=== PATIENT | male | born 1935 | race Caucasian/White ===

== ENCOUNTER 2023-05-28 12:02 | Outpatient (OUT) | payer MEDICARE, SELFPAY ==
[2023-05-28 12:47] LABS: Basophils Percent Auto 0.3 % (0.2-2.0); Bilirubin Urine NEGATIVE (NEGATIVE); Blood Urine NEGATIVE (NEGATIVE); Clarity Urine CLEAR (CLEAR); Color Urine LT. YELLOW (YELLOW); Eosinophils Absolute Auto 0.1 10^3/uL (0.0-0.7); Glucose Urine UA NEGATIVE (NEGATIVE); Hematocrit 32.5 % (42.0-54.0); Hemoglobin 10.4 g/dL (14.0-18.0); Immature Granulocytes Abs Auto 0.05 10^3/uL (0.00-0.03); Immature Granulocytes Pct Auto 0.7 % (0.0-0.5); Ketones Urine NEGATIVE (NEGATIVE); Leukocyte Esterase Urine NEGATIVE (NEGATIVE); Lymphocytes Absolute Auto 0.7 10^3/uL (1.2-3.8); Lymphocytes Percent Auto 10.1 % (20.5-60.0); Mean Corpuscular Hemoglobin 28.4 pg (25.9-34.0); Mean Corpuscular Volume 88.8 fL (80.0-94.0); Mean Platelet Volume 9.4 fL (9.5-13.5); Monocytes Absolute Auto 0.6 10^3/uL (0.3-0.8); Monocytes Percent Auto 7.5 % (1.7-12.0); Neutrophils Absolute Auto 5.9 10^3/uL (1.4-6.5); Neutrophils Percent Auto 80.4 % (43.0-75.0); Nitrite Urine NEGATIVE (NEGATIVE); Platelet Count 131 10^3/uL (150-450); Protein Urine NEGATIVE (NEG/TRACE); Red Blood Count 3.66 10^6/uL (4.70-6.10); Red Cell Distribution Width 16.4 % (11.0-15.0); Specific Gravity Urine 1.015 (1.005-1.025); Urobilinogen Urine 0.2 EU/dL (0.2-1.0); White Blood Count 7.3 10^3/uL (4.0-11.0)
[2023-05-28 12:53] LABS: Bacteria Urine NONE SEEN #/HPF (NONE SEEN); Cast Seen? NONE SEEN #/LPF (NONE SEEN); Crystals Seen? None Seen #/HPF (None Seen); Mucus Urine NONE SEEN (NONE SEEN); RBC Urine NONE SEEN #/HPF (0-2); Squamous Epithelial Cell Urine RARE #/LPF (NONE/RARE); WBC Urine NONE SEEN #/HPF (NONE SEEN)
[2023-05-28 12:54] LABS: Urine Culture Indicated NO
--- NOTE | 2023-05-28 13:05 | CT_ITS ---
[address] [address] Patient Name: ADRIEN MOORE MRN: [id number] date: 1935 Sex: M Assigned Patient Location: CT Current Patient Location: Accession/Order Number: [id number] Exam Date: 05/28/2023 13:00 Report Date: 05/29/2023 07:31 At the request of: RADHA ROWELL Procedure: CT chest wo con EXAMINATION: CT chest wo con HISTORY: Hemoptysis R04.2 COMPARISON: No relevant comparison available. TECHNIQUE: Multi-planar CT images were created with IV contrast. Axial, Coronal, and Sagittal images. Dose reduction techniques were achieved by using automated exposure control and/or adjustment of mA and/or kV according to patient size and/or use of iterative reconstruction technique. FINDINGS: LUNGS: Calcified tracheobronchial tree. Dependent opacities, atelectasis is favored no focal pulmonary nodule or mass PLEURA: No mass, effusion, or pneumothorax. VASCULATURE: No abnormality. [place]: Small calcified right hilar lymph nodes MEDIASTINUM: Scattered normal-sized lymph nodes CARDIAC: Moderate cardiomegaly. No pericardial effusion. Heavy coronary atherosclerosis AORTA: No aortic aneurysm. Atherosclerosis CHEST WALL: No mass or axillary adenopathy. BONES: No bone lesion or fracture. LIMITED ABDOMEN: No suspicious findings. Limited images of the upper abdomen. OTHER: Negative. CT/CT chest wo con IMPRESSION: No focal parenchymal mass or pathologic lymphadenopathy Marked cardiomegaly and coronary atherosclerosis Electronically authenticated by: FLORENTIN PECK Date: 05/29/2023 07:31
[2023-05-28 13:30] LABS: Percent Iron Saturation 21.6 %
[2023-05-28 13:40] LABS: Alanine Aminotransferase 29 U/L (16-63); Albumin Level 3.7 g/dL (3.4-5.0); Alkaline Phosphatase 87 U/L (46-116); Anion Gap 14.2; Aspartate Amino Transferase 24 U/L (15-37); BUN Creatinine Ratio 32.8; Bilirubin Total 1.1 mg/dL (0.2-1.0); Calcium 9.1 mg/dL (8.5-10.1); Carbon Dioxide 26.8 mmol/L (21.0-32.0); Chloride 101 mmol/L (98-107); Estimated GFR (African America 44 (>=60); Estimated GFR (Non-African Ame 36 (>=60); Globulin 3.7 g/dL; Glucose 97 mg/dL (74-106); Sodium 137 mmol/L (136-145); Thyroid Stimulating Hormone 1.669 uIU/mL (0.358-3.740); Total Protein 7.4 g/dL (6.4-8.2)
[2023-05-29 15:08] LABS: Albumin 3.6 g/dL (2.9-4.4); Alpha-1-Globulin 0.2 g/dL (0.0-0.4); Alpha-2-Globulin 0.8 g/dL (0.4-1.0); Free Kappa Lt Chains,S 43.3 mg/L (3.3-19.4); Free Lambda Lt Chains,S 26.2 mg/L (5.7-26.3); Gamma Globulin 1.2 g/dL (0.4-1.8); Immunoglobulin A, Qn, Serum 170 mg/dL (61-437); Immunoglobulin G, Qn, Serum 1188 mg/dL (603-1613); Immunoglobulin M, Qn, Serum 108 mg/dL (15-143); Kappa/Lambda Ratio,S 1.65 (0.26-1.65); Protein, Total 6.7 g/dL (6.0-8.5)
== END 2023-05-28 12:03 | disposition home or self-care (01) ==
LOC: CT 12:04
PROVIDERS: PCP Internal Medicine; Visit Provider Internal Medicine
DX: R04.2 Hemoptysis (principal); R73.01 Impaired fasting glucose; G62.9 Polyneuropathy, unspecified; D64.9 Anemia, unspecified; R53.83 Other fatigue; I12.9 Hypertensive chronic kidney disease with stage 1 through stage 4 chronic kidney disease, or unspecified chronic kidney disease; N18.32 Chronic kidney disease, stage 3b; D69.6 Thrombocytopenia, unspecified; I48.19 Other persistent atrial fibrillation
CPT/HCPCS: 36415; 71250; 80053; 81001; 82607; 82728; 82746; 82784; 83540; 83550; 84155; 84165; 84443; 85025; 86334

== ENCOUNTER 2023-06-15 10:46 | Outpatient (OUT) | payer MEDICARE, SELFPAY ==
[2023-06-15 11:44] LABS: Thyroid Stimulating Hormone 2.214 uIU/mL (0.358-3.740)
[2023-06-18 13:07] LABS: Albumin 3.6 g/dL (2.9-4.4); Alpha-1-Globulin 0.3 g/dL (0.0-0.4); Alpha-2-Globulin 0.8 g/dL (0.4-1.0); Protein, Total 6.6 g/dL (6.0-8.5)
== END 2023-06-15 10:47 | disposition home or self-care (01) ==
LOC: LAB 10:48
PROVIDERS: PCP Internal Medicine; Visit Provider Psychiatry & Neurology Neurology
DX: G62.9 Polyneuropathy, unspecified (principal)
CPT/HCPCS: 36415; 82607; 82746; 84155; 84165; 84443

== ENCOUNTER 2023-06-20 12:48 | Outpatient (RCR) | payer MEDICARE, SELFPAY | END 2023-06-21 16:43 | disposition home or self-care (01) | LOC: PT 12:48 | PROVIDERS: PCP Internal Medicine; Visit Provider Psychiatry & Neurology Neurology | DX: G62.9 Polyneuropathy, unspecified (principal) | CPT/HCPCS: 97163 ==

== ENCOUNTER 2023-06-20 15:51 | Outpatient (OUT) | payer MEDICARE, SELFPAY ==
[2023-06-20 16:16] LABS: Basophils Percent Auto 0.4 % (0.2-2.0); Eosinophils Percent Auto 0.8 % (0.9-7.0); Hemoglobin 9.6 g/dL (14.0-18.0); Immature Granulocytes Abs Auto 0.01 10^3/uL (0.00-0.03); Immature Granulocytes Pct Auto 0.2 % (0.0-0.5); Lymphocytes Absolute Auto 0.7 10^3/uL (1.2-3.8); Lymphocytes Percent Auto 13.6 % (20.5-60.0); Mean Corpuscular Hemoglobin 29.4 pg (25.9-34.0); Mean Corpuscular Volume 91.7 fL (80.0-94.0); Mean Platelet Volume 9.5 fL (9.5-13.5); Monocytes Absolute Auto 0.5 10^3/uL (0.3-0.8); Monocytes Percent Auto 9.2 % (1.7-12.0); Neutrophils Absolute Auto 3.9 10^3/uL (1.4-6.5); Neutrophils Percent Auto 75.8 % (43.0-75.0); Platelet Count 114 10^3/uL (150-450); Red Blood Count 3.27 10^6/uL (4.70-6.10); Red Cell Distribution Width 16.6 % (11.0-15.0); White Blood Count 5.1 10^3/uL (4.0-11.0)
[2023-06-20 16:32] LABS: Anion Gap 12.3; BUN Creatinine Ratio 26.7; Calcium 8.4 mg/dL (8.5-10.1); Carbon Dioxide 26.8 mmol/L (21.0-32.0); Chloride 102 mmol/L (98-107); Estimated GFR (African America 30 (>=60); Estimated GFR (Non-African Ame 25 (>=60); Glucose 105 mg/dL (74-106); Potassium 5.1 mmol/L (3.5-5.1); Sodium 136 mmol/L (136-145)
== END 2023-06-20 15:52 | disposition home or self-care (01) ==
LOC: LAB 15:54
PROVIDERS: PCP Internal Medicine; Visit Provider Internal Medicine
DX: D64.9 Anemia, unspecified (principal)
CPT/HCPCS: 36415; 80048; 85025

== ENCOUNTER 2023-07-09 11:35 | Outpatient (OUT) | payer MEDICARE, SELFPAY ==
[2023-07-09 12:53] LABS: Thyroid Stimulating Hormone 1.217 uIU/mL (0.358-3.740)
[2023-07-09 14:28] LABS: Vitamin B12 >6000.0 pg/mL (193.0-986.0)
== END 2023-07-09 11:36 | disposition home or self-care (01) ==
PROVIDERS: PCP Internal Medicine; Visit Provider Psychiatry & Neurology Neurology
DX: G62.9 Polyneuropathy, unspecified (principal)
CPT/HCPCS: 36415; 82607; 82746; 84155; 84165; 84443

== ENCOUNTER 2023-07-24 20:48 | Outpatient (OUT) | payer MEDICARE, SELFPAY | END 2023-07-24 20:49 | disposition home or self-care (01) | LOC: SLEEP 20:50 | PROVIDERS: PCP Internal Medicine; Visit Provider Internal Medicine | DX: G47.33 Obstructive sleep apnea (adult) (pediatric) (principal); G47.11 Idiopathic hypersomnia with long sleep time | CPT/HCPCS: 95810 ==